=== PATIENT | female | born 1970 | race Caucasian/White ===

== ENCOUNTER 2016-12-21 15:33 | Emergency (ER) ==
[2016-12-21 16:15] VITALS: BP_SYST 2
== END 2016-12-21 15:50 | disposition left against medical advice (07) ==
LOC: ED 15:33
DX: R10.9 Unspecified abdominal pain (principal)

== ENCOUNTER 2016-12-22 16:12 | Emergency (ER) ==
[2016-12-22 16:47] LABS: MANUAL DIFF NEEDED? NO
[2016-12-22 16:52] LABS: BASO% 0.6 % (0.0-0.8); EOS# 0.28 X1000 (0.0-0.7); EOS% 3.6 % (0.0-10.0); HEMATOCRIT 38.2 % (37.0-47.0); HEMOGLOBIN 12.8 g/dL (12.0-16.0); LYMPH# 2.29 X1000 (1.2-3.4); LYMPH% 29.4 % (20.5-51.1); MCH 31.8 PG (27-31); MCHC 33.5 g/dL (33-37); MCV 94.8 FL (81-99); MONO# 0.53 X1000 (0.11-0.59); MONO% 6.8 % (1.7-9.3); NEUT% 59.6 % (42.2-75.2); PLT 272 X1000 (130-400); RBC 4.03 XMIL (4.2-5.4)
[2016-12-22 17:15] LABS: ALBUMIN 3.6 g/dL (3.5-5.0); CALCIUM 8.6 mg/dL (8.8-10.2); POTASSIUM 3.7 mmol/L (3.5-5.1); TOTAL BILIRUBIN 0.17 mg/dL (0.20-1.00); TOTAL PROTEIN 6.6 g/dL (6.3-8.3)
--- NOTE | 2016-12-22 17:26 | PROVIDER DOCUMENTATION ---
HPI-Abdominal Pain/GI Problem - General Chief Complaint: Abdominal Pain Stated Complaint: LOWER ABD PAIN Time Seen by Provider: 12/22/16 17:20 Source: patient Allergies/Adverse Reactions: Patient Allergies Allergy/AdvReac Type Severity Reaction Status Date / Time Sulfa (Sulfonamide Allergy HIVES Verified 12/22/16 23:36 Antibiotics) Home Medications: Home Medication List Medication Instructions Recorded Confirmed Last Taken Type Ciprofloxacin HCl [Cipro] 500 mg PO BID 12/22/16 12/22/16 12/22/16 History Fluoxetine HCl [Prozac] 40 mg PO DAILY 12/22/16 12/22/16 12/22/16 History Phenazopyridine HCl [Pyridium] 100 mg PO TID #6 tablet 12/22/16 Unknown Rx - History of Present Illness-ABD Nature of Presenting Problems: 46 y/o WF c/o abd. pain x 1 day. Pt states back pain x 3 days. States L low back pain and L sided abd. pain. Reports was seen at urgent care yesterday and given dx of UTI and given cipro. States abd. pain got better, and started to get worse about 2 hours ago. Denies hx of kidney stones, hematuria. States only pressure with urination; denies frequency, urgeny, dysuria. Denies any vomiting, but states nausea. States pain was worse yesterday, but started coming back today, so she came here. Review of Systems - Adult - REVIEW OF SYSTEMS - ADULT Constitutional: reports: no symptoms reported. denies: chills, fever Eyes: reports: no symptoms reported. denies: blurred vision, double vision Ears, Nose, Mouth & Throat: reports: no symptoms reported. denies: ear pain, nose pain Cardiovascular: reports: no symptoms reported. denies: edema, orthopnea Respiratory: reports: no symptoms reported. denies: cough, shortness of breath Gastrointestinal: reports: see HPI, abdominal pain. denies: constipation, diarrhea, nausea, vomiting Genitourinary: reports: see HPI, frequent UTI's. denies: dysuria, frequency Musculoskeletal: reports: no symptoms reported. denies: joint pain, joint swelling Integumentary: reports: no symptoms reported. denies: nail changes, rash Neurological: reports: no symptoms reported. denies: numbness, paresthesia Psychiatric: reports: no symptoms reported Endocrine: reports: no symptoms reported. denies: cold intolerance, heat intolerance Hematologic/Lymphatic: reports: no symptoms reported. denies: easy bruising, prolonged bleeding Allergic/Immunologic: reports: no symptoms reported All Other Systems: Reviewed and Negative Past History - Adult - PAST MEDICAL HISTORY-ADULT Review of Records: reports: Nursing Assessment Review, Medications Reviewed Gastrointestinal: reports: GERD Psychiatric: reports: depression - PRIOR SURGERIES/PROCEDURES Surgical/Procedure History: reports: tonsillectomy, back/neck (coccyx/sacral cystectomy), other (sinus surgery, uterine ablation) - SOCIAL HISTORY Smoking: cigarettes, less than 1 pack/day Provider spent 3-5 mins advising pt. on dangers of tobacco.: Discussed manners to quit use, and f/u contacts for add'l counseling. Alcohol Use Frequency: never Physical Exam-General - PHYSICAL EXAM-ADULT Initial Vital Signs Reviewed: Yes - CONSTITUTIONAL General Appearance: alert, mild distress - EYES Eyes: pink conjunctivae - HEAD, EARS, NOSE, MOUTH & THROAT HENMT: normocephalic/atraumatic - NECK Neck: normal inspection - RESPIRATORY Respiratory: lungs clear, normal breath sounds. negative: crackles, rales, rhonchi, stridor, wheezing - CARDIOVASCULAR Cardiovascular: regular rate, rhythm. negative: bradycardia, tachycardia - GASTROINTESTINAL (ABDOMEN) Abdominal Exam: normal bowel sounds, soft, tenderness (LLQ, suprapubic). negative: distended, guarding, rigid, Pierre's sign - MUSCULOSKELETAL Back Exam: no CVA tenderness, other (TTP L low back) Extremity: normal gait - SKIN Integumentary: normal color, normal turgor, warm/dry - NEUROLOGIC Neurologic: negative: aphasia - PSYCHIATRIC Psych/Mental Status: normal mood/affect, normal thought content, normal thought process, oriented x 3 Progress - PLAN OF CARE/RESULTS Progress/Plan/Lab Results: Vital Signs Temp Pulse Resp BP Pulse Ox 12/23/16 00:42 68 18 139/92 97 12/22/16 23:06 98.3 F 63 18 140/76 98 12/22/16 16:23 98.1 F 76 18 152/109 99 Sulfa (Sulfonamide Antibiotics) Allergy (Verified 12/22/16 23:36) HIVES Ciprofloxacin HCl [Cipro] 500 mg PO BID 12/22/16 Fluoxetine HCl [Prozac] 40 mg PO DAILY 12/22/16 Phenazopyridine HCl [Pyridium] 100 mg PO TID #6 tablet 12/22/16 I&O 12/23/16 12/24/16 12/25/16 06:59 06:59 06:59 Output Total 20 Balance -20 Laboratory 12/22/16 12/22/16 12/22/16 16:26 16:26 16:26 WBC 7.80 RBC 4.03 L Hgb 12.8 Hct 38.2 MCV 94.8 MCH 31.8 H MCHC 33.5 RDW Std Deviation 13.6 Plt Count 272 MPV 12.0 H Immature Gran % (Auto) 0.0 Neut % (Auto) 59.6 Lymph % (Auto) 29.4 [place] % (Auto) 6.8 Eos % (Auto) 3.6 Baso % (Auto) 0.6 Immature Gran # (Auto) 0.00 Neut # (Auto) 4.65 Lymph # (Auto) 2.29 [place] # (Auto) 0.53 Eos # (Auto) 0.28 Baso # (Auto) 0.05 Sodium 137 Potassium 3.7 Chloride 102 Carbon Dioxide 25 Anion Gap 10 BUN 14 Creatinine 1.0 H Estimated GFR/1.73 m2 60 BUN/Creatinine Ratio 14 Glucose 86 Calculated Osmolality 274 Calcium 8.6 L Total Bilirubin 0.17 L AST 10 ALT 13 Alkaline Phosphatase 112 H Total Protein 6.6 Albumin 3.6 Globulin 3.0 Albumin/Globulin Ratio 1.2 Amylase 56 Lipase 31 Urine Source CLEAN CATCH Urine Color ORANGE Urine Turbidity HAZY Urine pH 6.5 Ur Specific [place] 1.019 Urine Protein TRACE A Ur Glucose (Stick) NEGATIVE Ur Ketones (Stick) NEGATIVE Urine Blood MODERATE A Urine Nitrite POSITIVE A Urine Bilirubin MODERATE A Urobilinogen Dipstick 8 A Urine Leukocytes NEGATIVE Urine WBC (Auto) 10-20 A Urine RBC (Auto) <10 U Epithel Cells (Auto) >10 A Urine Bacteria (Auto) 4+ Urine Crystals Not Reportable Small Round Cells Not Reportable Urine Casts Not Reportable Urine Yeast-like Cells PRESENT Orders Category Date Time Status RENAL STONE SEARCH [CT] Stat Exams 12/22/16 22:34 Draft AMYLASE [CHEM] Stat Lab 12/22/16 16:26 Completed CBC WITH ELECTRONIC DIFF [HEME] Stat Lab 12/22/16 16:26 Completed COMPREHENSIVE METABOLIC PANEL [CHEM] Stat Lab 12/22/16 16:26 Completed LIPASE [CHEM] Stat Lab 12/22/16 16:26 Completed UA Reflex [URINALYSIS W/POSS RFLX CULT] [URINALYSIS] Lab 12/22/16 16:26 Completed Stat URINE CULTURE [RM] Routine Lab 12/22/16 18:47 Completed URINE MANUAL MICROSCOPIC [URINALYSIS] Stat Lab 12/22/16 16:26 Completed CefTRIAXONE [Rocephin] Med 12/22/16 23:31 Discontinued 1 gm IM NOW ONE Etomidate [Amidate] Med 12/22/16 20:41 Discontinued 40 mg .ROUTE .STK-MED ONE Hydrocodone/APAP 7.5 mg/325 mg [[place]-7.5] Med 12/22/16 23:30 Discontinued 1 each PO NOW ONE Lidocaine 1% Pf [Xylocaine-Mpf 1%] Med 12/22/16 23:31 Discontinued 5 ml INJ NOW ONE Midazolam [Versed] Med 12/22/16 20:42 Discontinued 5 mg .ROUTE .STK-MED ONE Midazolam [Versed] Med 12/22/16 20:47 Discontinued 5 mg .ROUTE .STK-MED ONE Ondansetron Odt [Zofran Odt] Med 12/22/16 23:30 Discontinued 4 mg PO NOW ONE Succinylcholine [Quelicin] Med 12/22/16 20:41 Discontinued 200 mg .ROUTE .STK-MED ONE Tamsulosin [Flomax] Med 12/22/16 23:31 Discontinued 0.4 mg PO NOW ONE Discussed results and f/u with pt; note that versed and succinylcholine and etomidate was not used during pt care. Discussed pt with Dr. Lao; he agreed with d/c home. - CT/MRI 1 CT Study: Renal Stone Impression: See EMR Report (2 mm left renal stone, no hydronephrosis, no bowel obstruction, normal appendix, no abscess, no pelvic mass, no free air. -per Dr. Campbell) Departure - Departure Time of Disposition Order: 23:34 DIAGNOSIS: Renal stone UTI (urinary tract infection) Qualifiers: Urinary tract infection type: acute cystitis Hematuria presence: with hematuria Qualified Code(s): N30.01 - Acute cystitis with hematuria Disposition: HOME 01 Certified Medical Emergency: Emergent Condition: Stable Additional Instructions: Take medications as directed. Follow up with specialist if symptoms get worse. Drink plenty of fluids. ED Follow Up Instructions: You have been treated by a care provider in the Emergency Department. These instructions are being provided to you so you can have an understanding of how to care for yourself upon discharge. Upon discharge from the Emergency Department, you are responsible for making arrangements for follow-up care by a physician of your choice. Take all prescribed medications as directed. Return to the Emergency Department immediately for any new or worsening symptoms. You may call the Physician Referral phone number at [phone] to obtain a list of Physicians who are taking new patients. Prescriptions: Phenazopyridine HCl [Pyridium] 100 mg PO TID #6 tablet Referrals: Maxi Crane MD [STAFF PHYSICIAN] - Forms: Return to School/Parent Work Instructions: Urinary Tract Infection, [id number] Attestation - Physician/ KIM Attestation Patient care was provided by Advanced Practice Provider:: Yes Advanced Practice Provider:: Miranda Joseph Advanced Practice Provider documentation review:: The Mid-level provider documentation, treatment plan and medical decision making was reviewed by the physician who agrees with all treatment and medical decision making by the MLP.
[2016-12-22 17:38] LABS: URINE SOURCE CLEAN CATCH
[2016-12-22 17:42] LABS: URINE MICRO REVIEW NEEDED? YES
[2016-12-22 17:43] LABS: BILIRUBIN URINE MODERATE (NEGATIVE); BLOOD URINE MODERATE (NEGATIVE); COLOR ORANGE; GLUCOSE URINE NEGATIVE (NEGATIVE); LEUKOCYTES URINE NEGATIVE (NEGATIVE); NITRITE URINE POSITIVE (NEGATIVE); PH URINE 6.5; PROTEIN URINE TRACE mg/dL (NEGATIVE); SP GRAVITY URINE 1.019; TURBIDITY URINE HAZY (CLEAR); UR EPITHELIAL CELLS >10 /HPF (<10); URINE BACTERIA 4+ /HPF; URINE CULTURE NEEDED? YES; URINE RBC <10 /HPF (<10); UROBILINOGEN URINE 8 mg/dL (NORMAL)
[2016-12-22] MEDS ORDERED: AMIDATE ONE (20:41)
[2016-12-22] MEDS ORDERED: QUELICIN ONE (20:41)
[2016-12-22] MEDS ORDERED: VERSED ONE ×2 (20:42→20:47)
[2016-12-22] MEDS ORDERED: ZOFRAN ODT PO ONE (23:30)
[2016-12-22] MEDS ORDERED: NORCO-7.5 PO ONE (23:30)
[2016-12-22] MEDS ORDERED: FLOMAX PO ONE (23:31)
[2016-12-22] MEDS ORDERED: ROCEPHIN IM ONE (23:31)
[2016-12-22] MEDS ORDERED: XYLOCAINE-MPF 1% INJ ONE (23:31)
[2016-12-23 00:42] VITALS: BP 139/92
--- NOTE | 2016-12-23 10:11 | Diag Imaging Result Document ---
PROCEDURE NAME: RENAL STONE SEARCH - 12/22/2016 CT ABDOMEN AND PELVIS WITHOUT CONTRAST: COMPARISON: None available. FINDINGS: There are few tiny cystic-appearing foci involving the liver. There is a 2-mm nonobstructing intrarenal stone on the left. There are no ureteral stones, and there is no hydronephrosis. The kidneys are grossly unremarkable, otherwise. The urinary bladder is grossly unremarkable. The appendix is normal. There appears to be a 1.5-cm left ovarian cyst. No discrete adnexal masses are identified, otherwise. No focal inflammatory changes, free abdominal gas, or free fluid is identified. The remainder of the solid viscera of the abdomen and pelvis and the remainder of the GI tract is essentially unremarkable. IMPRESSION: 1. Tiny nonobstructing intrarenal stone on the left but no ureteral stones and no evidence of acute obstructive uropathy. 2. Incidental/nonacute findings detailed above but no definite acute pathology.
== END 2016-12-23 00:42 | disposition home or self-care (01) ==
LOC: ED 16:12
DX: N20.0 Calculus of kidney (principal); N30.01 Acute cystitis with hematuria; R10.30 Lower abdominal pain, unspecified; R10.32 Left lower quadrant pain; M54.5 Low back pain; Z87.440 Personal history of urinary (tract) infections; F32.9 Major depressive disorder, single episode, unspecified; F17.210 Nicotine dependence, cigarettes, uncomplicated; Z71.6 Tobacco abuse counseling; Z79.899 Other long term (current) drug therapy
CPT/HCPCS: 36415; 74176; 80053; 81001; 82150; 83690; 85025; 87088; 96372; J0330; J0696; J2250